=== PATIENT | male | born 1995 | race Caucasian/White ===

== ENCOUNTER 2016-07-28 11:26 | Emergency (ER) | payer OTHER ==
[~2016-07-28] VITALS: Ht 193 cm; Wt 81.8 kg
[~2016-07-28 11:26] MED LIST: FLONASEALLERGY NS; LEVAQUIN 750MG750 M1 PO; SINGULAIR 110 MG/TAB PO
[2016-07-28 11:29] VITALS: BP 132/91; PULSE 90; TEMP 97.9
== END 2016-07-28 11:55 | disposition home or self-care (01) ==
LOC: COL.ER 11:26
DX: S90.112A Contusion of left great toe without damage to nail, initial encounter (principal); S90.111A Contusion of right great toe without damage to nail, initial encounter; W49.09XA Other specified item causing external constriction, initial encounter; X50.9XXA Other and unspecified overexertion or strenuous movements or postures, initial encounter; Y93.67 Activity, basketball; Y92.310 Basketball court as the place of occurrence of the external cause

== ENCOUNTER 2016-08-18 08:40 | Emergency (ER) | payer OTHER ==
[~2016-08-18] VITALS: Ht 193 cm; Wt 81.8 kg
[2016-08-18 08:42] VITALS: TEMP 98.5
[2016-08-18] MEDS ORDERED: SINGULAIR 110 MG/TAB PO (08:45)
[2016-08-18] MEDS ORDERED: RT ADVAIR 128 DISKUS IH (08:46)
[2016-08-18 09:27] LABS: INFLUENZA B NEGATIVE
[2016-08-18 10:29] VITALS: BP 112/65
[2016-08-18] MEDS ORDERED: PREDNISONE20 MG PO (10:49)
[2016-08-18 10:58] VITALS: PULSE 116
== END 2016-08-18 10:58 | disposition home or self-care (01) ==
LOC: COL.ER 08:40
PROVIDERS: Physician Assistant
DX: J45.901 Unspecified asthma with (acute) exacerbation (principal); J98.11 Atelectasis
CPT/HCPCS: J7512